=== PATIENT | male | born 1970 | race Caucasian/White ===

== ENCOUNTER 2019-03-31 07:48 | Day surgery (SDC) | payer SELFPAY ==
[~2019-03-31 07:48] MED LIST: Bupivacaine 0.5% 30 ML SDV ONE; Lactated Ringers 1,000 ML IV SCH; Sodium Chloride 0.9% 10 ML SDV IV PRN; Sodium Chloride 0.9% 10 ML Syringe FLUSH PRN; Sodium Chloride 0.9% 2.5 ML Syringe FLUSH PRN; ceFAZolin 2 GM in Premix Bag 1 BAG IV ONE
--- NOTE | 2019-03-31 08:26 | PCM.PREANE ---
Preanesthetic Assessment - Anesthesia/Transfusion/Family Hx Anesthesia History: Prior Anesthesia Without Reaction Family History of Anesthesia Reaction: No Transfusion History: No Prior Transfusion(s) Intubation History: Unknown - Review of Systems General: No Symptoms Pulmonary: No Symptoms Cardiovascular: No Symptoms Gastrointestinal: No Symptoms Neurological: No Symptoms Other: Reports: None - Physical Assessment Height: 5 ft 11 in Weight: 112.037 kg ASA Class: 2 Mental Status: Alert & Oriented x3 Airway Class: Mallampati = 2 Dentition: Reports: Normal Dentition Thyro-Mental Finger Breadths: 3 Mouth Opening Finger Breadths: 3 ROM/Head Extension: Full Lungs: Clear to Auscultation, Normal Respiratory Effort Cardiovascular: Regular Rate, Regular Rhythm - Allergies Allergies/Adverse Reactions: Allergies Allergy/AdvReac Type Severity Reaction Status Date / Time No Known Allergies Allergy Verified 03/24/19 16:01 - Blood Blood Available: No - Anesthesia Plan Pre-Op Medication Ordered: None - Acknowledgements Anesthesia Type Planned: General Anesthesia Pt an Appropriate Candidate for the Planned Anesthesia: Yes Alternatives and Risks of Anesthesia Discussed w Pt/Guardian: Yes Pt/Guardian Understands and Agrees with Anesthesia Plan: Yes PreAnesthesia Questionnaire Gastrointestinal History: Reports: None Musculoskeletal History: Reports: Gout Endocrine/Metabolic History: Reports: Obesity/BMI 30+ - Past Surgical History Head Surgeries/Procedures: Reports: None HEENT Surgical History: Reports: Tonsillectomy GI Surgical History: Reports: Hernia, Inguinal (right, '04 or '05) - SUBSTANCE USE Smoking Status *Q: Never Smoker Recreational Drug Use History: No - HOME MEDS Home Medications: Home Meds Allopurinol [Zyloprim] 100 mg PO DAILY 03/24/19 [History] - CURRENT (IN HOUSE) MEDS Current Meds: Current Medications Lactated Ringer's (Ringers, Lactated) 1,000 mls @ 125 mls/hr IV ASDIRECTED TG Sodium Chloride (Saline Flush) 10 ml FLUSH ASDIRECTED PRN PRN Reason: Keep Vein Open Sodium Chloride (Saline Flush) 2.5 ml FLUSH ASDIRECTED PRN PRN Reason: Keep Vein Open Sodium Chloride (Normal Saline) 10 ml IV ASDIRECTED PRN PRN Reason: IV Use Discontinued Medications Bupivacaine HCl (Marcaine 0.5%) Confirm Administered Dose 30 ml .ROUTE .STK-MED ONE Stop: 03/31/19 07:40 Cefazolin Sodium/Dextrose 2 gm (/ Premix) 50 mls @ 100 mls/hr IV ONETIME ONE Stop: 03/30/19 08:33
[2019-03-31] MEDS ORDERED: Propofol 200 MG/20 ML SDV ONE (08:32)
[2019-03-31] MEDS ORDERED: Ondansetron 4 MG/2 ML SDV ONE (08:32)
[2019-03-31] MEDS ORDERED: fentaNYL 250 MCG/5 ML SDV ONE (08:32)
[2019-03-31] MEDS ORDERED: Midazolam 1 MG/ML 2 ML SDV ONE (08:32)
[2019-03-31] MEDS ORDERED: Lidocaine 2% 5 ML SDV ONE (08:32)
[2019-03-31] MEDS ORDERED: Glycopyrrolate 0.2 MG/ML SDV ONE ×2 (09:57→09:58)
[2019-03-31] MEDS ORDERED: Sodium Chloride 0.9% 20 ML ONE (09:59)
[2019-03-31] MEDS ORDERED: ceFAZolin 1 GM Vial ONE (09:59)
[2019-03-31] MEDS ORDERED: Atropine 0.1 MG/ML 10 ML Syringe IVPUSH PRN ×2 (10:19)
[2019-03-31] MEDS ORDERED: Naloxone 0.4 MG/ML Syringe IVPUSH PRN (10:19)
[2019-03-31] MEDS ORDERED: 50% Dextrose in Water 50 ML Syringe IVPUSH PRN (10:19)
[2019-03-31] MEDS ORDERED: fentaNYL 100 MCG/2 ML SDV IVPUSH PRN (10:19)
[2019-03-31] MEDS ORDERED: EPINEPHrine 1:10,000 1 MG/10 ML Syringe IVPUSH PRN (10:19)
[2019-03-31] MEDS ORDERED: Albuterol 0.083% 2.5 MG/3 ML Neb Soln NEB PRN (10:19)
[2019-03-31] MEDS ORDERED: Phenylephrine/Normal Saline 100 MCG/ML 10 ML Syringe ONE (10:57)
[2019-03-31] MEDS ORDERED: Acetaminophen/oxyCODONE 325-5 MG Tab PO PRN (11:21)
--- NOTE | 2019-03-31 11:25 | PCM.OPNOTE ---
- General Post-Op/Procedure Note Date of Surgery/Procedure: 03/31/19 Operative Procedure(s): Left inguinal hernia repair with mesh Findings: Fat containing left indirect inguinal hernia Pre Op Diagnosis: Inguinal hernia Post-Op Diagnosis: Inguinal hernia Anesthesia Technique: MAC Primary Surgeon: Hope Dias Condition: Good
--- NOTE | 2019-04-01 14:08 | OR ---
SURGEON: HOPE DIAS MD DATE OF PROCEDURE: 03/31/2019 PREOPERATIVE DIAGNOSIS: Left inguinal hernia. POSTOPERATIVE DIAGNOSIS: Left indirect inguinal hernia. PROCEDURE PERFORMED: Left inguinal hernia repair with mesh. PRIMARY SURGEON: Hope Dias MD. ANESTHESIA: General endotracheal anesthesia. FLUIDS: 1700 mL crystalloid. ESTIMATED BLOOD LOSS: 5 mL. FINDINGS: Fat containing left indirect inguinal hernia. COMPLICATIONS: None. INDICATIONS: The patient is a 49-year-old male who presents with a left inguinal hernia. I explained the Pathophysiology of inguinal hernias and why they need to be repaired. I consented him for a left open inguinal hernia repair with mesh. I explained the procedure, expected perioperative course, and risks including bleeding, infection, or damage to surrounding structures. He verbalized understanding and wishes to proceed. PROCEDURE IN DETAIL: The patient was brought into the operating room and placed on the OR table in supine position. A time-out was completed verifying the patient's name, age, date of , allergies, and procedure to be performed. General endotracheal anesthesia was induced. The lower abdomen, groin, and genitalia were prepped and draped in usual standard fashion. I anesthetized the area overlying my skin incision with 0.5% Marcaine plain. An oblique incision was made 1 fingerbreadth above the inguinal ligament with a 10 blade. Cautery was used to dissect down to the level of the external oblique fascia. The external oblique fascia was incised with a 15 blade. I then used Metzenbaum scissors to carry the incision down along the length of the fibers to the external ring. I then cleared away the underside of the external oblique fascia both inferiorly and superiorly exposing the cord and its structures. I immediately identified an indirect hernia sac containing fat. I encircled the cord structures with a [place] drain. The hernia sac was then from the cord structures. The floor of the inguinal canal was intact. The hernia sac was reduced back into the abdomen. A small Prolene plug and patch were brought into the field. The patch was then placed within the internal ring to prevent prolapse of the inguinal hernia to prevent recurrence of the inguinal hernia. It was sutured in place using interrupted 0 Ethibond sutures. The patch was then placed into the floor of the inguinal canal with a tail around the internal ring. I then sutured it into place using interrupted 0 Ethibond sutures. These were placed medially to the pubic tubercle, inferiorly to Sammy's ligament and inguinal ligament, and superiorly to the conjoint tendon. The tails of the mesh were secured with enough space to allow the cord structures to not be strangulated. The patient was given a Valsalva maneuver and the repair appeared intact. I irrigated the area with normal saline. The external oblique fascia was then closed with a running 3-0 Vicryl suture. I injected 10 more mL of 0.5% Marcaine into the surrounding subcutaneous tissues. The subcutaneous fat was closed with a running 3-0 Vicryl suture in the deep layer and interrupted 3-0 Vicryl sutures in the more superficial layer. The skin was then closed with a running 4-0 Monocryl suture. Steri-Strips and sterile dressings were applied. The testicle was palpated at the end of the case and found to be within the scrotum. All sponge and needle counts were correct at the end of the case. The patient was extubated and taken to the PACU in stable condition. BRAYAN OTOOLE /[id number] MTDCiarra
== END 2019-03-31 13:38 | disposition home or self-care (01) ==
LOC: MW.SDS 07:48
PROVIDERS: ATTEND Surgery
DX: K40.90 Unilateral inguinal hernia, without obstruction or gangrene, not specified as recurrent (principal); M10.9 Gout, unspecified; E66.9 Obesity, unspecified; Z68.34 Body mass index [BMI] 34.0-34.9, adult; Z79.899 Other long term (current) drug therapy
CPT/HCPCS: 49505; A9270; J0690; J2001; J2250; J2370; J2405; J2704; J3010; J3490; J7120

== ENCOUNTER 2020-12-01 08:14 | Day surgery (SDC) | payer MEDICAID ==
[~2020-12-01 08:14] MED LIST changes: -Bupivacaine 0.5% 30 ML SDV ONE; -ceFAZolin 2 GM in Premix Bag 1 BAG IV ONE
--- NOTE | 2020-12-01 08:41 | PCM.PREANE ---
Preanesthetic Assessment - Anesthesia/Transfusion/Family Hx Anesthesia History: Prior Anesthesia Without Reaction Family History of Anesthesia Reaction: No Transfusion History: No Prior Transfusion(s) Intubation History: Unknown - Review of Systems General: No Symptoms Pulmonary: No Symptoms Cardiovascular: No Symptoms Gastrointestinal: No Symptoms Neurological: No Symptoms Other: Reports: None - Physical Assessment NPO Status Date: 12/01/20 NPO Status Time: 06:30 Vital Signs: Last Vital Signs Temp 36.6 C 12/01/20 08:27 Pulse 57 L 12/01/20 08:27 Resp 16 12/01/20 08:27 BP 134/66 12/01/20 08:27 Pulse Ox 98 12/01/20 08:27 Height: 1.8 m Weight: 111.584 kg ASA Class: 2 Mental Status: Alert & Oriented x3 Airway Class: Mallampati = 2 Dentition: Reports: Normal Dentition Thyro-Mental Finger Breadths: 3 Mouth Opening Finger Breadths: 3 ROM/Head Extension: Full Lungs: Clear to Auscultation, Normal Respiratory Effort Cardiovascular: Regular Rate, Regular Rhythm - Allergies Allergies/Adverse Reactions: Allergies Allergy/AdvReac Type Severity Reaction Status Date / Time No Known Allergies Allergy Verified 11/25/20 10:00 - Acknowledgements Anesthesia Type Planned: MAC (The patient understands and accepts the anesthetic risks and benefits of MAC. All questions answered. Consent signed. ) Pt an Appropriate Candidate for the Planned Anesthesia: Yes Alternatives and Risks of Anesthesia Discussed w Pt/Guardian: Yes Pt/Guardian Understands and Agrees with Anesthesia Plan: Yes PreAnesthesia Questionnaire HEENT History: Reports: None Cardiovascular History: Reports: None Respiratory History: Reports: None Gastrointestinal History: Reports: GERD Other Gastrointestinal History: dyphagia Genitourinary History: Reports: None Musculoskeletal History: Reports: Gout Neurological History: Reports: None Psychiatric History: Reports: None Endocrine/Metabolic History: Reports: Obesity/BMI 30+ (bmi 34) Hematologic History: Reports: None Immunologic History: Reports: None Oncologic (Cancer) History: Reports: None Dermatologic History: Reports: None - Infectious Disease History Infectious Disease History: Reports: Other (See Below) (covid negative november 2020) - Past Surgical History Head Surgeries/Procedures: Reports: None HEENT Surgical History: Reports: Tonsillectomy Cardiovascular Surgical History: Reports: None Respiratory Surgical History: Reports: None GI Surgical History: Reports: Hernia, Inguinal (left) Other GI Surgeries/Procedures: inguinal hernia repair x2 Male Surgical History: Reports: None Endocrine Surgical History: Reports: None Neurological Surgical History: Reports: None Musculoskeletal Surgical History: Reports: None Oncologic Surgical History: Reports: None Dermatological Surgical History: Reports: None - History Comment History Comment: etoh "1-2 x a week", but none for the past month. - SUBSTANCE USE Tobacco Use Status *Q: Never Tobacco User Recreational Drug Use History: No - HOME MEDS Home Medications: Home Meds allopurinoL [Zyloprim] 100 mg PO DAILY 03/24/19 [History] Famotidine [Pepcid] 20 mg PO BID 11/25/20 [History] - CURRENT (IN HOUSE) MEDS Current Meds: Current Medications Lactated Ringer's (Ringers, Lactated) 1,000 mls @ 125 mls/hr IV ASDIRECTED TG Sodium Chloride (Saline Flush) 10 ml FLUSH ASDIRECTED PRN PRN Reason: Keep Vein Open Sodium Chloride (Saline Flush) 2.5 ml FLUSH ASDIRECTED PRN PRN Reason: Keep Vein Open Sodium Chloride (Saline Flush) 10 ml FLUSH ASDIRECTED PRN PRN Reason: Keep Vein Open Sodium Chloride (Saline Flush) 2.5 ml FLUSH ASDIRECTED PRN PRN Reason: Keep Vein Open Sodium Chloride (Normal Saline) 10 ml IV ASDIRECTED PRN PRN Reason: IV Use
[2020-12-01] MEDS ORDERED: fentaNYL 100 MCG/2 ML SDV ONE (09:58)
[2020-12-01] MEDS ORDERED: Propofol 200 MG/20 ML SDV ONE ×2 (09:58→10:33)
[2020-12-01] MEDS ORDERED: Midazolam 1 MG/ML 2 ML SDV ONE (09:58)
[2020-12-01] MEDS ORDERED: Lidocaine 2% 5 ML SDV ONE (09:58)
--- NOTE | 2020-12-01 11:36 | PCM.POSTAN ---
POST ANESTHESIA ASSESSMENT - MENTAL STATUS Mental Status: Alert, Oriented - VITAL SIGNS Vital Signs: Last Vital Signs Temp 36.3 C 12/01/20 11:10 Pulse 52 L 12/01/20 11:10 Resp 16 12/01/20 11:10 BP 115/68 12/01/20 11:10 Pulse Ox 95 12/01/20 11:10 - RESPIRATORY Respiratory Status: Respiratory Rate WNL, Airway Patent, O2 Saturation Stable - CARDIOVASCULAR CV Status: Pulse Rate WNL, Blood Pressure Stable - GASTROINTESTINAL GI Status: No Symptoms - POST OP HYDRATION Hydration Status: Adequate & Stable - OBSERVATIONS Free Text/Narrative:: The patient appears comfortable,and in no acute distress. There were no apparent anesthetic complications at this time.
--- NOTE | 2020-12-01 11:37 | PCM48HPAN ---
Post Anesthesia Note - EVALUATION WITHIN 48HRS OF ANESTHETIC Vital Signs in Normal Range: Yes Patient Participated in Evaluation: Yes Respiratory Function Stable: Yes Airway Patent: Yes Cardiovascular Function Stable: Yes Hydration Status Stable: Yes Pain Control Satisfactory: Yes Nausea and Vomiting Control Satisfactory: Yes Mental Status Recovered: Yes Vital Signs: Last Vital Signs Temp 36.3 C 12/01/20 11:10 Pulse 52 L 12/01/20 11:10 Resp 16 12/01/20 11:10 BP 115/68 12/01/20 11:10 Pulse Ox 95 12/01/20 11:10 - COMMENTS/OBSERVATIONS Free Text/Narrative:: The patient has no complaints at this time. There were no apparent anesthetic complications at this time. Discharge per criteria.
--- NOTE | 2020-12-01 12:04 | PCM.OPNOTE ---
- General Post-Op/Procedure Note Date of Surgery/Procedure: 12/01/20 Operative Procedure(s): Diagnostic egd and screening colonoscopy Findings: Hiatal hernia with esophagitis, normal colonoscopy Pre Op Diagnosis: Dysphagia, screening colonoscopy Post-Op Diagnosis: Hiatal hernia with esophagitis, normal colonoscopy Anesthesia Technique: JULIUS Primary Surgeon: Hope Dias Condition: Good Free Text/Narrative:: Intake & Output 11/30/20 12/01/20 12/01/20 22:59 06:59 14:59 Intake Total 700 Balance 700
--- NOTE | 2020-12-01 14:53 | OR ---
SURGEON: HOPE DIAS MD DATE OF PROCEDURE: 12/01/2020 PREOPERATIVE DIAGNOSES: Dysphagia, screening colonoscopy. POSTOPERATIVE DIAGNOSES: 1. Hiatal hernia with gastroesophageal reflux disease and esophagitis. 2. Normal colonoscopy. 3. Hyperplastic gastric polyp. PROCEDURE PERFORMED: Diagnostic esophagogastroduodenoscopy and screening colonoscopy. PRIMARY SURGEON: Hope Dias MD ANESTHESIA: MAC. INSTRUMENT USED: Olympus endoscope and colonoscope. EXTENT OF EXAM: To the second portion of duodenum, to the cecum. PREPARATION: Good. LIMITATIONS: None. INDICATIONS FOR EXAMINATION: The patient is a 50-year-old male who presents with complaints of increasing dysphagia. He has been taking Pepcid with some relief in his symptoms. A preoperative esophagram showed a hiatal hernia with reflux as well as some mild dysphagia. The patient has never had a screening colonoscopy. I explained the need for a diagnostic EGD and a screening colonoscopy. We discussed the procedure, expected perioperative course, and the risks. He verbalized understanding and wishes to proceed. PROCEDURE IN DETAIL: The patient was brought into the endoscopy suite and placed in the left lateral decubitus position. A time-out was completed verifying the patient's name, age, date of , allergies, and procedure to be performed. A bite block was placed in the patient's mouth. Continuous oxygen was provided via nasal cannula and monitored anesthesia care was induced. After adequate sedation was achieved, a well-lubricated endoscope was placed in the patient's mouth and advanced under direct visualization to the second portion of duodenum. This appeared normal and a photograph was taken. The scope was then fully withdrawn while examining the color, texture, anatomy, and integrity of the mucosa from the second portion of duodenum to the esophagus. The duodenum appeared normal. The scope was brought into the stomach and a photograph was taken of the pylorus and GE junction. The patient's hiatal hernia was quite small. Biopsies were taken of the gastric antrum, body, and fundus and sent for histologic review and H pylori testing. The patient was noted to have a small hyperplastic polyp near the juncture of the fundus and body. This was removed and sent to pathology, labeled as hyperplastic gastric polyp. The scope was then brought into the distal esophagus. A photograph was taken of the small hiatal hernia sac. The Z- line appeared abnormal with signs of chronic inflammation. There were no ulcers. Biopsies were taken of this area and sent to pathology, labeled as esophagus. The remainder of the esophageal mucosa appeared normal. The scope was removed and this portion of the procedure terminated. A digital rectal exam was performed. This exam was within normal limits. A well-lubricated colonoscope was inserted in the rectum and advanced under direct visualization to the level of the cecum. The cecum was identified by both visual and anatomic landmarks. A photograph was taken of the cecal cap; however, the scope was not retroflexed due to looping of the scope more proximally. The scope was then fully withdrawn while examining the color, texture, anatomy, and integrity of the mucosa from the cecum to the anal canal. The patient was found to have normal-appearing colonic mucosa. The scope was brought into the rectum and retroflexed to allow visualization of the anal canal opening. This appeared normal and a photograph was taken. The scope was then straightened out and fully withdrawn. The cecum to anus time was 6 minutes. The patient tolerated the procedure well and was transferred to the PACU in stable condition. ENDOSCOPIC DIAGNOSES: 1. Hiatal hernia with gastroesophageal reflux disease and esophagitis. 2. Hyperplastic gastric polyp. 3. Normal colonoscopy. RECOMMENDATIONS: Follow up in clinic in 2 weeks. I will start the patient on omeprazole 40 mg daily and discontinue his Pepcid. BRAYAN / SYDNIE /[id number]
== END 2020-12-01 11:37 | disposition home or self-care (01) ==
LOC: MW.SDS 08:14
PROVIDERS: ATTEND Surgery
DX: Z12.11 Encounter for screening for malignant neoplasm of colon (principal); K21.00 Gastro-esophageal reflux disease with esophagitis, without bleeding; K44.9 Diaphragmatic hernia without obstruction or gangrene; K31.7 Polyp of stomach and duodenum; K22.8 Other specified diseases of esophagus; E66.9 Obesity, unspecified; Z68.34 Body mass index [BMI] 34.0-34.9, adult; Z87.39 Personal history of other diseases of the musculoskeletal system and connective tissue; Z79.899 Other long term (current) drug therapy; Z98.890 Other specified postprocedural states
CPT/HCPCS: 43239; 45378; 88305; 88312; J2250; J2704; J3010; J7120